=== PATIENT | male | born 1995 | race Caucasian/White ===

== ENCOUNTER 2018-12-22 14:19 | Emergency (ER) | payer BC ==
[~2018-12-22] VITALS: Ht 167.6 cm; Wt 80.2 kg
[2018-12-22 14:41] VITALS: BP 118/81
== END 2018-12-22 16:48 | disposition home or self-care (01) ==
LOC: ED 16:33
DX: S43.102A Unspecified dislocation of left acromioclavicular joint, initial encounter (principal); W01.0XXA Fall on same level from slipping, tripping and stumbling without subsequent striking against object, initial encounter; Y93.89 Activity, other specified; Y92.89 Other specified places as the place of occurrence of the external cause; Y99.8 Other external cause status
CPT/HCPCS: 29105; 99283